=== PATIENT | male | born 1940 | race Caucasian/White ===

== ENCOUNTER → 2023-03-28 | Outpatient (CLI) | payer MEDICARE, OTHER, SELFPAY ==
--- NOTE | 2023-03-28 | HIP_PTH ---
PATHOLOGY RESULTS PATIENT: VIRAJ BELTRAN LOC: [facility]#:[id number] AGE/SX: 83/M ROOM: RE03/28/[address]: Dr. Ji Black MD : 1940 BED: DIS: 03/28/2023 SPEC #: [id number] RECD: 04/01/23 07:54 STATUS: ALEJANDRO REThelma #: [id number] RODRIGO: 03/28/23 00:[address]: Ji Black DEPT: SURGICAL PATHOLOGY RECD BY: Chantel Barillas ENTERED: 04/01/23 07:55 SP TYPE: TOTAL HIP OTHR DR: GERARDO Tissues: Hip, NOS Procedures: Decalcification bone/plaque Surgery Specimen Level IV HEADER OPERATION: Right total hip replacement PRE-OP DIAGNOSIS: Osteoarthritis right hip TISSUE SUBMITTED: Right femur head MICROSCOPIC DIAGNOSIS Right femoral head, total hip replacement/resection: Femoral head with degenerative osteoarthritic changes. Fragments of fibroadipose tissue, fibroconnective tissue and reactive synovial tissue. ANNA:dana 04/04/2023 MICROSCOPIC DESCRIPTION Slides are reviewed. GROSS DESCRIPTION Received is one container labeled with the patient's name and designated right femur head. The specimen consists of a warren femoral head with portion of femoral neck. The femoral head measures 5.0 x 5.5 x 4.5 cm and the femoral neck measures up to 3.0 cm in length. The articular surface displays prominent osteophyte formation, eburnation and bone erosion. Also present in the specimen container are multiple irregular fragments of bone reamings and pink-yellow soft tissue measuring in aggregate 8.0 x 5.5 x 1.5 cm. Orthotic Assistant sections are submitted in two cassettes as follows: 1 - soft tissue, 2??bone after decalcification. / ANNA:dana 04/01/2023 TC:5 CPT: 50169, [id number]
== END | disposition home or self-care (01) ==
PROVIDERS: Referring Provider Orthopaedic Surgery; Visit Provider Orthopaedic Surgery
DX: M16.11 Unilateral primary osteoarthritis, right hip (principal)
CPT/HCPCS: 88305; 88311

== ENCOUNTER → 2024-11-01 | Outpatient (CLI) | payer MEDICARE, OTHER, SELFPAY ==
--- NOTE | 2024-11-01 10:16 | MRI_ITS ---
PROCEDURE: BRAIN WITHOUT CONTRAST 11/01/2024 REASON FOR EXAM: MEMORY LOSS. 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 COMPARISON: None. FINDINGS: There is mild diffuse cerebral atrophy with concomitant ventriculomegaly. There is a single focus of abnormal subcortical white matter signal in the right frontal lobe. There is a normal sulcal pattern and gyral configuration. There is no evidence of acute intracranial hemorrhage or infarction. The [place]-white differentiation is well preserved. There is no evidence of restricted diffusion. The basilar cisterns are normal. There are normal flow voids demonstrated in the recognized intracranial vessels. The cerebellum and brainstem are unremarkable. The cerebellar pontine angles are normal. The craniovertebral junction is normal. The sella and suprasellar regions are normal. The orbits and retro-orbital regions are unremarkable. There is nasal septal deviation to the right. There is mucoperiosteal thickening of the left maxillary sinus and multiple ethmoidal air cells. There is a mucous retention cyst in the left maxillary sinus. There are multiple fluid-filled mastoid air cells bilaterally. There is normal bone marrow signal in the skull base and calvarium. MRI/Brain without Contrast IMPRESSION: 1. No evidence of acute intracranial pathology. 2. Cerebral atrophy. 3. Sinusitis and mastoiditis. Reading Location: [id number]
== END | disposition home or self-care (01) ==
LOC: MRI 10:09
PROVIDERS: PCP Family Medicine; Referring Provider Psychiatry & Neurology Neurology; Visit Provider Psychiatry & Neurology Neurology
DX: R41.3 Other amnesia (principal)
CPT/HCPCS: 70551